=== PATIENT | male | born 1980 | race Caucasian/White ===

== ENCOUNTER 2016-10-18 20:48 | Emergency (ER) | payer MEDICAID ==
--- NOTE | 2016-10-18 22:36 | EDPHY ---
H & P Stated Complaint: Swollen L calf-week and half. Time Seen by Provider: 10/18/16 22:25 HPI/ROS: HPI The patient presents with painful and swollen left calf which has been present for the last 1 and half weeks. It started spontaneously, initially with pain and then became progressively worse. He subsequently developed swelling of the leg which was most noticeable yesterday. He noticed that when he put on his boots there was an indentation from his skin. He has no prior history of similar. He has no personal or family history of DVT/PE. He has not had any recent travel or operations. He has had no injury to the area. He also says over the last 2 months he awakes with swelling of both of his hand. This is associated with pain. Throughout the course of the day the swelling somewhat improved. He has tried ibuprofen, arnica, CBD oral with some improvement in his symptoms.. REVIEW OF SYSTEMS Constitutional: No fever, no chills. Eyes: No discharge. ENT: No sore throat. Cardiovascular: No chest pain, no palpitations. Respiratory: No cough, no shortness of breath. Gastrointestinal: No abdominal pain, no vomiting. Genitourinary: No hematuria. Musculoskeletal: No back pain. Skin: No rashes. Neurological: No headache. 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, marijuana use FHx: No family history of DVT PE PHYSICAL General Appearance: Alert, no distress Eyes: Pupils equal and round no pallor or injection ENT, Mouth: Mucous membranes moist Respiratory: There are no retractions, lungs are clear to auscultation Cardiovascular: Regular rate and rhythm Gastrointestinal: Abdomen is soft and non-tender, no masses, bowel sounds normal Neurological: A&O, moves all extremities Skin: Warm and dry, no rashes Musculoskeletal: Neck is supple non tender Extremities: Left calf is slightly larger than right with mild diffuse tenderness, especially to the medial calf, there is no palpable mass, no overlying skin changes full range of motion Psychiatric: Patient is oriented X 3, there is no agitation Source: Patient Exam Limitations: No limitations - Personal History Current Tetanus/Diphtheria Vaccine: Unsure Tetanus Vaccine Date: < 10 years - Medical/Surgical History Hx Asthma: Yes Hx Chronic Respiratory Disease: No Hx Diabetes: No Hx Cardiac Disease: No Hx Renal Disease: No Hx Cirrhosis: No Hx Alcoholism: No Hx HIV/AIDS: No Hx Splenectomy or Spleen Trauma: No Other PMH: asthma, inguinal hernia repair. marijuana use. - Social History Smoking Status: Heavy smoker Constitutional: Initial Vital Signs Temperature (C) 36.6 C 10/18/16 21:11 Heart Rate 93 10/18/16 21:11 Respiratory Rate 16 10/18/16 21:11 Blood Pressure 116/69 10/18/16 21:11 O2 Sat (%) 97 10/18/16 21:11 O2 Delivery Mode Room Air Allergies/Adverse Reactions: ketorolac tromethamine [From Toradol] Allergy (Intermediate, Verified 10/18/16 21:14) Dyspnea Penicillins Allergy (Intermediate, Verified 10/18/16 21:14) Vomiting codeine Allergy (Unknown, Verified 10/18/16 21:14) Home Medications: Medication Instructions Recorded Albuterol [Proventil Inhaler HFA 1 - 2 puffs IH Q4H #1 mdi 02/15/16 (*)] Albuterol [Ventolin Hfa Inhaler] 2 puffs IH QID PRN #1 mdi 03/28/16 Albuterol Hfa Anes Only [Proair 2 puffs IH QID #1 mdi 05/02/16 Hfa Icu (*)] Medical Decision Making - Diagnostics Imaging: DVT study right lower extremity reveals a hematoma in the calf, discussed with Dr. Atkinson of Radiology. ED Course/Re-evaluation: In the emergency room, ultrasound was performed which showed no DVT in actually a hematoma. The patient is not aware of any trauma to the area, and is not aware of any bleeding disorders that he has. Labs were checked and were all unremarkable. The cause of his bilateral hand edema which is intermittent is unclear at this time. Because of this I have encouraged him to follow up with [facility]. He no longer sees his previous PMD. I have encouraged him to use warm compresses on his calf and keep it elevated. He should follow up if it is not improved in 1 week. Differential Diagnosis: This is a 36-year-old man with asthma who presents with 1 and half weeks of left calf pain and swelling which occurred without trauma. He also reports 2 months of bilateral hand edema. Differential diagnosis includes DVT, Yañez cyst, ruptured Yañez cyst, fluid overload state related to underlying kidney disease, liver disease, less likely cardiac disease. - Data Points Laboratory Results: Laboratory Results 10/18/16 23:59 10/18/16 23:59 10/19/16 10/18/16 10/18/16 01:00 23:59 23:59 WBC 7.92 10^3/uL 10^3/uL (3.80-9.50) RBC 4.34 10^6/uL L 10^6/uL (4.40-6.38) Hgb 12.8 g/dL L g/dL (13.7-17.5) Hct 37.1 % L % (40.0-51.0) MCV 85.5 fL fL (81.5-99.8) MCH 29.5 pg pg (27.9-34.1) MCHC 34.5 g/dL g/dL (32.4-36.7) RDW 13.4 % % (11.5-15.2) Plt Count 283 10^3/uL 10^3/uL (150-400) MPV 9.2 fL fL (8.7-11.7) Neut % (Auto) 61.4 % % (39.3-74.2) Lymph % (Auto) 25.9 % % (15.0-45.0) [place] % (Auto) 9.3 % % (4.5-13.0) Eos % (Auto) 2.3 % % (0.6-7.6) Baso % (Auto) 1.0 % % (0.3-1.7) Nucleat RBC Rel Count 0.0 % % (0.0-0.2) Absolute Neuts (auto) 4.86 10^3/uL 10^3/uL (1.70-6.50) Absolute Lymphs (auto) 2.05 10^3/uL 10^3/uL (1.00-3.00) Absolute Monos (auto) 0.74 10^3/uL 10^3/uL (0.30-0.80) Absolute Eos (auto) 0.18 10^3/uL 10^3/uL (0.03-0.40) Absolute Basos (auto) 0.08 10^3/uL 10^3/uL (0.02-0.10) Absolute Nucleated RBC 0.00 10^3/uL 10^3/uL (0-0.01) Immature Gran % 0.1 % % (0.0-1.1) Immature Gran # 0.01 10^3/uL 10^3/uL (0.00-0.10) Sodium 141 mEq/L mEq/L (134-144) Potassium 3.6 mEq/L mEq/L (3.5-5.2) Chloride 111 mEq/L H mEq/L (97-110) Carbon Dioxide 21 mEq/l L mEq/l (22-31) Anion Gap 9 mEq/L mEq/L (8-16) BUN 14 mg/dL mg/dL (7-23) Creatinine 1.0 mg/dL mg/dL (0.7-1.3) Estimated GFR > 60 Glucose 84 mg/dL mg/dL (70-100) Calcium 9.2 mg/dL mg/dL (8.5-10.4) Total Bilirubin 0.7 mg/dL mg/dL (0.1-1.4) AST 16 IU/L L IU/L (17-59) ALT 25 IU/L IU/L (21-72) Alkaline Phosphatase 72 IU/L IU/L (38-126) Total Protein 6.8 g/dL g/dL (6.3-8.2) Albumin 3.8 g/dL g/dL (3.5-5.0) Urine Color YELLOW Urine Appearance CLEAR Urine pH 5.0 (5.0-7.5) Ur Specific [place] 1.013 (1.002-1.030) Urine Protein NEGATIVE (NEGATIVE) Urine Ketones 1+ H (NEGATIVE) Urine Blood NEGATIVE (NEGATIVE) Urine Nitrate NEGATIVE (NEGATIVE) Urine Bilirubin NEGATIVE (NEGATIVE) Urine Urobilinogen NEGATIVE EU EU (0.2-1.0) Ur Leukocyte Esterase NEGATIVE (NEGATIVE) Ur Culture Indicated? NOT INDICATED (NI) Urine Glucose NEGATIVE (NEGATIVE) Medications Given: Discontinued Medications Ibuprofen (Motrin) 600 mg PO EDNOW ONE Stop: 10/19/16 02:00 Last Admin: 10/19/16 02:16 Dose: 600 mg Departure - Departure Disposition: Home, Routine, Self-Care Clinical Impression: Hematoma, Hand edema Condition: Good Instructions: Hematoma (ED) Additional Instructions: We have found hematoma, collection of blood in her calf and this is what is causing your leg pain and swelling. You can use a warm compress and elevate this to help with the pain. If your symptoms continue, you should have follow- up with a regular doctor. Please return to the emergency room if your worse in any way. Referrals: [facility] [Outside] - As per Instructions
[2016-10-19 00:28] LABS: % IMMATURE GRANULYOCYTES 0.1 % (0.0-1.1); ABSOLUTE IMMATURE GRANULOCYTES 0.01 10^3/uL (0.00-0.10); ADD DIFF? NO; ADD MORPH? NO; ADD SCAN? NO; ATYPICAL LYMPHOCYTE FLAG 20 (0-99); FRAGMENT RBC FLAG 0 (0-99); HEMATOCRIT 37.1 % (40.0-51.0); HEMOGLOBIN 12.8 g/dL (13.7-17.5); LEFT SHIFT FLG 0 (0-99); LIPEMIA HEMOLYSIS FLAG 90 (0-99); MEAN CELL HEMOGLOBIN 29.5 pg (27.9-34.1); MEAN CELL HEMOGLOBIN CONCENTR. 34.5 g/dL (32.4-36.7); MEAN CELL VOLUME 85.5 fL (81.5-99.8); MEAN PLATELET VOLUME 9.2 fL (8.7-11.7); PLATELET CLUMPS FLAG 10 (0-99); PLATELET COUNT 283 10^3/uL (150-400); RED BLOOD CELL COUNT 4.34 10^6/uL (4.40-6.38); RED CELL DISTRIBUTION WIDTH 13.4 % (11.5-15.2)
[2016-10-19 00:42] LABS: ALANINE AMINOTRANSFERASE 25 IU/L (21-72); ALBUMIN 3.8 g/dL (3.5-5.0); ALKALINE PHOSPHATASE 72 IU/L (38-126); ANION GAP 9 mEq/L (8-16); ASPARTATE AMINOTRANSFERASE 16 IU/L (17-59); BILIRUBIN,TOTAL 0.7 mg/dL (0.1-1.4); CALCIUM 9.2 mg/dL (8.5-10.4); CARBON DIOXIDE 21 mEq/l (22-31); CHLORIDE 111 mEq/L (97-110); GLOMERULAR FILTRATION RATE > 60; GLUCOSE 84 mg/dL (70-100); POTASSIUM 3.6 mEq/L (3.5-5.2); SODIUM 141 mEq/L (134-144); TOTAL PROTEIN 6.8 g/dL (6.3-8.2)
[2016-10-19 01:15] LABS: COLOR YELLOW; LEUKOCYTE ESTERASE,URINE NEGATIVE (NEGATIVE); NITRITE,URINE NEGATIVE (NEGATIVE)
[2016-10-19] MEDS ORDERED: IBUPROFEN 600 MG TAB PO ONE (01:59)
[2016-10-19 02:27] VITALS: BP 117/77; PULSE 76; RESP 12; TEMP 97.7; O2SAT 96
== END 2016-10-19 02:16 | disposition home or self-care (01) ==
DX: M79.81 Nontraumatic hematoma of soft tissue (principal); R60.9 Edema, unspecified; J45.909 Unspecified asthma, uncomplicated; F17.200 Nicotine dependence, unspecified, uncomplicated

== ENCOUNTER 2018-04-19 13:26 | Emergency (ER) | payer SELFPAY ==
[2018-04-19 13:32] VITALS: BP 114/66
[2018-04-19] MEDS ORDERED: predniSONE 20 MG TAB PO ONE (14:50)
--- NOTE | 2018-04-19 14:52 | EDPHY ---
H & P Stated Complaint: HX RA/ 2 WEEKS INCREASING PAIN ALL OVER Time Seen by Provider: 04/19/18 14:47 HPI/ROS: CHIEF COMPLAINT: Rheumatoid arthritis HISTORY OF PRESENT ILLNESS: The patient is a 37-year-old man comes to the emergency department complaining of diffuse joint pain secondary to his rheumatoid arthritis. He states that usually when this happens he gets a prescription for a course of prednisone. This is what he is requesting today. No recent fevers or infections. He had been seen at the [facility] but lost his Medicaid a few weeks ago. He has also been trying to obtain a referral to Rheumatology. No new or unusual symptoms. Severity: Moderate Modifying factors: He states he has been working more than usual and had dietary indiscretion REVIEW OF SYSTEMS: Constitutional: denies: chills, fever, recent illness, recent injury EENTM: denies: blurred vision, double vision, nose congestion Respiratory: denies: cough, shortness of breath Cardiac: denies: chest pain, irregular heart rate, lightheadedness, palpitations Gastrointestinal/Abdominal: denies: abdominal pain, diarrhea, nausea, vomiting, blood streaked stools Genitourinary: denies: dysuria, frequency, hematuria, pain Musculoskeletal: See HPI Skin: denies: lesions, rash, jaundice, bruising Neurological: denies: headache, numbness, paresthesia, tingling, dizziness, weakness Hematologic/Lymphatic: denies: blood clots, easy bleeding, easy bruising Immunologic/allergic: denies: HIV/AIDS, transplant 10 systems reviewed and negative except as noted EXAM: GENERAL: Well-appearing, well-nourished and in no acute distress. HEAD: Atraumatic, normocephalic. EYES: Pupils equal round and reactive to light, extraocular movements intact, sclera anicteric, conjunctiva are normal. ENT: TMs normal, nares patent, oropharynx clear without exudates. Moist mucous membranes. NECK: Normal range of motion, supple without lymphadenopathy or JVD. LUNGS: Breath sounds clear to auscultation bilaterally and equal. No wheezes rales or rhonchi. HEART: Regular rate and rhythm without murmurs, rubs or gallops. ABDOMEN: Soft, nontender, normoactive bowel sounds. No guarding, no rebound. No masses appreciated. BACK: No CVA tenderness, no spinal tenderness, step-offs or deformities EXTREMITIES: Diffuse joint pain, no obvious swelling or deformity. No erythema or warmth. Normal range of motion, no pitting or edema. No clubbing or cyanosis. NEUROLOGICAL: Cranial nerves II through XII grossly intact. Normal speech, normal gait. 5/5 strength, normal movement in all extremities, normal sensation , normal reflexes PSYCH: Normal mood, normal affect. SKIN: Warm, dry, normal turgor, no visible rashes or lesions. Source: Patient Exam Limitations: No limitations - Personal History Current Tetanus Diphtheria and Acellular Pertussis (TDAP): Unsure Tetanus Vaccine Date: < 10 years - Medical/Surgical History Hx Asthma: Yes Hx Chronic Respiratory Disease: No Hx Diabetes: No Hx Cardiac Disease: No Hx Renal Disease: No Hx Cirrhosis: No Hx Alcoholism: No Hx HIV/AIDS: No Hx Splenectomy or Spleen Trauma: No Other PMH: asthma, inguinal hernia repair. marijuana use. RA - Family History Significant Family History: No pertinent family hx - Social History Smoking Status: Heavy smoker Alcohol Use: Sober Drug Use: None Constitutional: Initial Vital Signs Temperature (C) 36.7 C 04/19/18 13:30 Heart Rate 70 04/19/18 13:30 Respiratory Rate 16 04/19/18 13:30 Blood Pressure 114/66 04/19/18 13:30 O2 Sat (%) 95 04/19/18 13:30 O2 Delivery Mode Room Air Allergies/Adverse Reactions: ketorolac tromethamine [From Toradol] Allergy (Intermediate, Verified 04/19/18 13:28) Dyspnea Penicillins Allergy (Intermediate, Verified 04/19/18 13:28) Vomiting codeine Allergy (Unknown, Verified 04/19/18 13:28) Home Medications: Medication Instructions Recorded Albuterol [Proventil Inhaler HFA 1 - 2 puffs IH Q4H #1 mdi 02/15/16 (*)] Albuterol [Ventolin Hfa Inhaler] 2 puffs IH QID PRN #1 mdi 03/28/16 Albuterol Hfa Anes Only [Proair 2 puffs IH QID #1 mdi 05/02/16 Hfa Icu (*)] predniSONE 60 mg PO DAILY #15 tab 04/19/18 Medical Decision Making ED Course/Re-evaluation: Patient is requesting a steroid burst. I will give him a dose here as well as a prescription. Will also refer him to Rheumatology he is happy with this plan and declines further workup or testing. Differential Diagnosis: Partial list of the Differential diagnosis considered include but were not limited to; rheumatoid arthritis the, the osteoarthritis and although unlikely based on the history and physical exam, I also considered infection, septic joint, influenza. I discussed these differential diagnoses and the plan with the patient as well as the usual and expected course. The patient understands that the diagnosis is provisional and that in medicine we are not always correct and that further workup is often warranted. Usual and customary warnings were given. All of the patient's questions were answered. The patient was instructed to return to the emergency department should the symptoms at all worsen or return, otherwise to followup with the physician as we discussed. - Data Points Medications Given: Discontinued Medications Prednisone (Prednisone) 60 mg PO EDNOW ONE Stop: 04/19/18 14:51 Last Admin: 04/19/18 15:01 Dose: 60 mg Departure - Departure Disposition: Home, Routine, Self-Care Clinical Impression: Rheumatoid arthritis flare Condition: Fair Instructions: Rheumatoid Arthritis (ED) Referrals: NONE *PRIMARY CARE P,. [Primary Care Provider] - As per Instructions Bird Rico MD [[facility] [place] Primary Care Provider] - 5-7 days, call for appt. Prescriptions: predniSONE 60 mg PO DAILY #15 tab
== END 2018-04-19 15:04 | disposition home or self-care (01) ==
DX: M06.9 Rheumatoid arthritis, unspecified (principal); F17.200 Nicotine dependence, unspecified, uncomplicated
CPT/HCPCS: J7512

== ENCOUNTER 2018-08-18 13:15 | Emergency (ER) | payer MEDICAID ==
[2018-08-18 13:25] VITALS: BP 119/64
--- NOTE | 2018-08-18 14:01 | EDPHY ---
H & P Stated Complaint: JOINT PAIN/RA FLARE UP Time Seen by Provider: 08/18/18 13:52 HPI/ROS: CHIEF COMPLAINT: Rheumatoid arthritis flare HISTORY OF PRESENT ILLNESS: The patient presents the ED with complaints of rheumatoid arthritis flare. The patient is complaining of pain in his bilateral hands and wrists. The patient was unable to be seen at his primary care provider's office secondary to insurance issues. The patient is taking no medications for chronic management of his rheumatoid arthritis. The patient denies any fever. He denies any complaints of fever or congestion. REVIEW OF SYSTEMS: A comprehensive 10 point review of systems is otherwise negative aside from elements mentioned in the history of present illness. - Personal History Current Tetanus Diphtheria and Acellular Pertussis (TDAP): Yes Tetanus Vaccine Date: < 10 years - Medical/Surgical History Hx Asthma: Yes Hx Chronic Respiratory Disease: No Hx Diabetes: No Hx Cardiac Disease: No Hx Renal Disease: No Hx Cirrhosis: No Hx Alcoholism: No Hx HIV/AIDS: No Hx Splenectomy or Spleen Trauma: No Other PMH: asthma, inguinal hernia repair. marijuana use. RA - Social History Smoking Status: Former smoker - Physical Exam Exam: General Appearance: Alert, no distress Eyes: Pupils equal and round no pallor or injection ENT, Mouth: Mucous membranes moist Respiratory: There are no retractions, lungs are clear to auscultation Cardiovascular: Regular rate and rhythm Gastrointestinal: Abdomen is soft and nontender, no masses, bowel sounds normal Neurological: A&O, normal motor function, normal sensory exam, normal cranial nerves Skin: Warm and dry, no rashes Musculoskeletal: Neck is supple nontender, no clinical evidence of septic arthritis or abscess Extremities: Changes noted to the extremities consistent with his chronic underlying rheumatoid arthritis Psychiatric: Patient is oriented X 3, there is no agitation Constitutional: Initial Vital Signs Temperature (C) 36.3 C 08/18/18 13:23 Heart Rate 60 08/18/18 13:23 Respiratory Rate 17 08/18/18 13:23 Blood Pressure 119/64 08/18/18 13:23 O2 Sat (%) 98 08/18/18 13:23 O2 Delivery Mode Room Air Allergies/Adverse Reactions: ketorolac tromethamine [From Toradol] Allergy (Intermediate, Verified 08/18/18 13:21) Dyspnea Penicillins Allergy (Intermediate, Verified 08/18/18 13:21) Vomiting codeine Allergy (Unknown, Verified 08/18/18 13:21) Home Medications: Medication Instructions Recorded Albuterol Hfa Anes Only [Proair 2 puffs IH QID #1 mdi 05/02/16 Hfa Icu (*)] Medical Decision Making ED Course/Re-evaluation: Patient is given a prescription for prednisone and [place]. He is advised [facility]. Departure - Departure Disposition: Home, Routine, Self-Care Clinical Impression: Rheumatoid arthritis flare Condition: Good Instructions: Rheumatoid Arthritis (ED) Additional Instructions: 1. Prednisone as directed for next 5 days. 2. [place] as needed for severe pain. 3. Please schedule a follow-up appointment with [facility] in the next week. Referrals: [facility],. [Clinic] - As per Instructions
== END 2018-08-18 14:14 | disposition home or self-care (01) ==
DX: M06.9 Rheumatoid arthritis, unspecified (principal); Z87.891 Personal history of nicotine dependence

== ENCOUNTER 2018-11-07 14:45 | Emergency (ER) | payer MEDICAID ==
--- NOTE | 2018-11-07 16:13 | ASMTCMCOM ---
CM Note CM Note Notes: This CM met with patient to discuss plans for follow up and PCP. Patient states that he used to go to the [facility] but has not been there in over a year. He does not remember the name of his provider from the clinic but states that he did receive a referral for a Rheumalologist but "was never able to get in. I had an appointment scheduled that I missed and never rescheduled". Patient tells me that he was not prescribed medication for arthritis at [facility] but he had blood work completed that resulted in his referral to Rheumatology. I have encoraged patient to contact the [facility] first thing tomorrow morning to schedule an ED follow up visit. I told patient that this CM would send his ED report to the clinic in the morning requesting a follow up visit as well. patient verbalizes understanding of the importance of follow up with his PCP for ongoing care needs as well as to hasten referrals as needed. This CM will fax ED report to [facility] tomorrow morning and follow up with patient to remind him to schedule appointment. Date Signed: 11/07/2018 04:13 PM Electronically Signed By:Jannet Frye RN
--- NOTE | 2018-11-07 16:22 | EDPHY ---
H & P Time Seen by Provider: 11/07/18 15:26 HPI/ROS: HPI Rheumatoid arthritis flare. 38-year-old male by private vehicle with his . This patient has a long history of rheumatoid arthritis. He has been referred from our emergency department 2 [facility] for long-term management of his condition. He has been referred to a plumber's assistant as well by his primary care physician at [facility] but has failed to follow up as arranged. He presents to the emergency department with complaint of a flare of his rheumatoid arthritis. He describes this as pain in his hands and knees typical of previous rheumatoid arthritis exacerbations. No history of trauma. He has not had a fever. He has been taking Aleve with some relief from this medication. ROS: Constitutional: No fever, no chills. No weakness. Eyes: No discharge. No changes in vision. Respiratory: No cough. No shortness of breath. Cardiac: No chest pain, no palpitations. Gastrointestinal: No abdominal pain, no vomiting, no diarrhea. Musculoskeletal: No back pain. No neck pain. As above. Skin: No rashes. Neurological: No headache. No focal weakness or altered sensation. Past medical history: Asthma, inguinal hernia repair, rheumatoid arthritis. Social history: . He is with his and daughter. Heavy smoker. Denies alcohol. Smokes marijuana. Physical Exam: General Appearance: Alert, no distress. This patient is responding to questions appropriately and in full sentences. This patient appears well- hydrated and well-nourished. Eyes: Pupils equal and round no pallor or injection. No lid edema, erythema or injection. Neurological: Motor sensory function is grossly intact. Cranial nerves are normal. Gait is normal. Skin: Warm and dry, no rashes. Musculoskeletal: Neck is supple and nontender. Extremities are symmetrical. Examination of his hands reveals typical findings associated with rheumatoid arthritis. There is no erythema, no warmth. No evidence of bony fracture or other acute traumatic injury. All joints range without significant pain or impingement. Psychiatric: No agitation. No depression. Database: EKG: Imaging: Procedures: Emergency department course: Triage vital signs reviewed and are normal. This patient has presented to our emergency department in the past with similar complaints. Jannet of case management saw this patient. We will arrange for him to be seen by his primary care physician at [facility] tomorrow. They can prescribed prednisone which he usually requires for up to 2 weeks and narcotic pain medication if needed. He states that he is usually prescribed [place] as well. They can also provide him with a plumber's assistant referral for ongoing management. The patient is in agreement with this plan. I do not feel he requires further emergency department care at this time. He understands his follow-up. Return to emergency department precautions reviewed with him. All of his questions were answered. Jannet is working tomorrow and will follow up and ensure that the patient gets to his follow-up appointment and has the proper information to do so. Differential Diagnosis: The differential diagnosis on this patient includes but is not limited to rheumatoid arthritis flare. Septic arthritis, acute traumatic injury unlikely. This represents a partial list of diagnoses considered. These considerations are based on history, physical exam, past history, reassessment and diagnostic testing. Smoking Status: Former smoker Constitutional: Initial Vital Signs Temperature (C) 36.6 C 11/07/18 14:54 Heart Rate 85 11/07/18 14:54 Respiratory Rate 18 11/07/18 14:54 Blood Pressure 119/75 11/07/18 14:54 O2 Sat (%) 95 11/07/18 14:54 O2 Delivery Mode Room Air Allergies/Adverse Reactions: ketorolac tromethamine [From Toradol] Allergy (Intermediate, Verified 11/07/18 14:53) Dyspnea Penicillins Allergy (Intermediate, Verified 11/07/18 14:53) Vomiting codeine Allergy (Unknown, Verified 11/07/18 14:53) Home Medications: Medication Instructions Recorded Kristan 11/07/18 Departure - Departure Disposition: Home, Routine, Self-Care Clinical Impression: Rheumatoid arthritis flare Condition: Good Instructions: Rheumatoid Arthritis (ED) Additional Instructions: Read and follow provided instructions. [facility]-up with [facility] physician [facility] early this week for re-evaluation and referral to a plumber's assistant as discussed. Your primary care physician will likely prescribe you an extended course of prednisone as well as [place] if needed. Our case management department will follow up with you tomorrow regarding your care. Return to the emergency department for worsening symptoms, worsening pain, fever , discoloration or other serious concerns. Referrals: [facility],. [Clinic] - As per Instructions
[2018-11-07 17:13] VITALS: BP 114/94
--- NOTE | 2018-11-08 10:35 | ASMTCMCOM ---
CM Note CM Note Notes: ED report from yesterdays visit faxed to [facility]. Patient contacted and he tells this CM that he has scheduled an appointment at the clinic for tomorrow at 6PM Date Signed: 11/08/2018 09:52 AM Electronically Signed By:Jannet Frye RN
== END 2018-11-07 17:12 | disposition home or self-care (01) ==
DX: M06.841 Other specified rheumatoid arthritis, right hand (principal); M06.842 Other specified rheumatoid arthritis, left hand; M06.861 Other specified rheumatoid arthritis, right knee; M06.862 Other specified rheumatoid arthritis, left knee